=== PATIENT | male | born 1955 | race Caucasian/White ===

== ENCOUNTER → 2020-08-28 | Outpatient (CLI) | payer OTHER ==
[~2020-08-28] MED LIST: CHOLESTEROL MED; MOTION RELIEF25 MG PO
== END ==
LOC: SJCVCIMAG 07:08
PROVIDERS: ATTEND Internal Medicine Cardiovascular Disease
DX: I11.9 Hypertensive heart disease without heart failure (principal); I25.10 Atherosclerotic heart disease of native coronary artery without angina pectoris; E78.5 Hyperlipidemia, unspecified

== ENCOUNTER → 2020-09-14 | Outpatient (CLI) | payer OTHER ==
[2020-09-14 10:16] LABS: ABSOLUTE NEUTROPHILS 3.9 thou/uL (1.4-8.2); BASOPHILS 0.5 % (0.0-2.0); EOSINOPHILS 2.7 % (0.0-3.0); HEMATOCRIT 41.8 % (42.0-52.0); HEMOGLOBIN 13.7 gm/dL (14.0-18.0); LYMPHOCYTES 23.3 % (24.0-44.0); MCH 27.2 pg (26.0-34.0); MCHC 32.8 g/dL (28.0-37.0); MONOCYTES 7.9 % (1.0-8.0); PLATELET COUNT 204 thou/uL (150-400); POLYS 65.6 % (36.0-66.0); RBC 5.04 mil/uL (4.50-6.00); RDW 14.5 % (10.5-14.5); WBC 5.9 thou/uL (4.0-11.0)
[2020-09-14 10:32] LABS: ALBUMIN 3.6 g/dL (3.4-5.0); CALCIUM 8.7 mg/dL (8.5-10.1); CREATININE 0.9 mg/dL (0.7-1.3); POTASSIUM 4.3 mmol/L (3.5-5.1); TOTAL BILIRUBIN 0.6 mg/dL (0.2-1.0); TOTAL PROTEIN 6.6 g/dL (6.4-8.2)
== END ==
LOC: CAT 09:30
PROVIDERS: ATTEND Internal Medicine Cardiovascular Disease
DX: I25.10 Atherosclerotic heart disease of native coronary artery without angina pectoris (principal); R91.1 Solitary pulmonary nodule; I48.91 Unspecified atrial fibrillation

== ENCOUNTER → 2020-09-16 | Outpatient (CLI) | payer OTHER ==
[~2020-09-16] MED LIST changes: +LIPITOR40 MG PO; +TOPROL XL25 MG PO; +TRIAMCINOLONE A15 G3 TOP; +VITAMIN AND MI1 EACH PO; +XARELTO20 MG PO
== END ==
LOC: LAB 10:32
PROVIDERS: ATTEND Internal Medicine Cardiovascular Disease
DX: Z01.812 Encounter for preprocedural laboratory examination (principal); Z20.828 Contact with and (suspected) exposure to other viral communicable diseases

== ENCOUNTER 2020-09-17 06:30 | Observation (INO) | payer OTHER ==
[2020-09-17] VITALS (10 sets, daily range): BP systolic 113–141; BP diastolic 59–88
[~2020-09-17] VITALS: Ht 182.9 cm; Wt 94.3 kg
[~2020-09-17 06:30] MED LIST changes: -LIPITOR40 MG PO; -TOPROL XL25 MG PO; -TRIAMCINOLONE A15 G3 TOP; -VITAMIN AND MI1 EACH PO; -XARELTO20 MG PO
[2020-09-17] MEDS ORDERED: LIPITOR40 MG PO (07:45)
[2020-09-17] MEDS ORDERED: TOPROL XL25 MG PO (07:45)
[2020-09-17] MEDS ORDERED: TRIAMCINOLONE A15 G3 TOP (07:49)
[2020-09-17] MEDS ORDERED: VITAMIN AND MI1 EACH PO (07:50)
[2020-09-17] MEDS ORDERED: XARELTO20 MG PO (07:54)
[2020-09-17 07:55] LABS: ABSOLUTE NEUTROPHILS 3.4 thou/uL (1.4-8.2); BASOPHILS 0.9 % (0.0-2.0); EOSINOPHILS 3.5 % (0.0-3.0); HEMATOCRIT 41.3 % (42.0-52.0); HEMOGLOBIN 13.5 gm/dL (14.0-18.0); LYMPHOCYTES 27.7 % (24.0-44.0); MCH 26.9 pg (26.0-34.0); MCHC 32.7 g/dL (28.0-37.0); MCV 82.4 fL (80.0-100.0); MONOCYTES 9.1 % (1.0-8.0); PLATELET COUNT 209 thou/uL (150-400); POLYS 58.8 % (36.0-66.0); RBC 5.02 mil/uL (4.50-6.00); RDW 14.3 % (10.5-14.5); WBC 5.9 thou/uL (4.0-11.0)
[2020-09-17 08:02] LABS: APTT 24.7 Seconds (24.5-32.8); PROTIME 10.1 Seconds (9.3-11.4)
[2020-09-17 08:11] LABS: CALCIUM 8.4 mg/dL (8.5-10.1); CREATININE 0.8 mg/dL (0.7-1.3); POTASSIUM 3.9 mmol/L (3.5-5.1)
[2020-09-17 08:13] LABS: ALBUMIN 3.5 g/dL (3.4-5.0); TOTAL BILIRUBIN 0.4 mg/dL (0.2-1.0); TOTAL PROTEIN 6.6 g/dL (6.4-8.2)
--- NOTE | 2020-09-17 13:50 | NUR ---
RIGHT GROIN IS STABLE, NO SIGN'S OF A HEMATOMA. PEDAL PULSES ARE INTACT 2+ BILATERALLY, NO MOTTLING, BOTH LEGS WARM TO TOUCH. DENIES ANY CHEST PAIN, NO SOB ON ROOM AIR. AT BEDSIDE, QUESTIONS ASKED AND DISCUSSED POST SURGERY EXPECTATIONS .
--- NOTE | 2020-09-17 19:58 | NUR ---
1730_ OFF BEDREST, RIGHT GROIN IS C,D,I NO HEMATOMA, SOFT TO TOUCH. PT. NSR NO ECTOPY. DENIES CP. DENIES SOB.
[2020-09-18 00:59] VITALS: BP 128/74
[2020-09-18 01:04] VITALS: BP 122/71
[2020-09-18 04:03] VITALS: BP 122/75
--- NOTE | 2020-09-18 07:33 | NUR ---
SLEPT PART OF SHIFT. DAY NURSE PRIOR TO DC OF TRE NOTED BLOOD TINGED URINE. FIRST COUPLE OF VOIDS PAST DC HAD SMALL AMOUT OF BLOOD NOTED. PATIENT STATES IS CLEAR THIS AM. RIGHT GROIN SITE WITHOUT HEMOTOMA OR BLEEDING. WORKING ON GOALS AND PLAN OF CARE FOR NOC. PROGRESSING TOWARDS DISCHARGE GOALS AT THIS TIME. CONTINUE TO ASSES.
[2020-09-18 08:47] VITALS: BP 115/69
[2020-09-18 11:14] VITALS: BP 115/69
--- NOTE | 2020-09-21 11:51 | P ---
[facility] [place] [address] PROCEDURE REPORT Name: JENNIFER RYDER Room #: 219-P [facility] Katie Colmenares#: [id number] Admission: 09/17/20 Attend Phys: Reji Mock MD Discharge: 09/18/20 Date of : 53 Report #: [id number] THIS REPORT FOR: cc: Cheo Francois MD, Troy A. MD Couchonnal, Luis F. MD ~ CC: Reji Francois PREOPERATIVE DIAGNOSIS: Atrial fibrillation. POSTOPERATIVE DIAGNOSIS: Atrial fibrillation. HISTORY: The patient is a 65-year-old with history of atrial fibrillation, here for ablation. PROCEDURES PERFORMED: 1. Atrial fibrillation ablation, CPT code 43393. 2. 3D mapping, CPT code 98559. 3. Intracardiac echo, CPT code 09731. ANESTHESIA: The patient underwent general anesthesia with no anesthesia related complications. DESCRIPTION OF PROCEDURE: The patient underwent informed consent. We discussed the details of the procedure including the risks, which include but not limited to bleeding, infection, vascular damage, stroke, [place] as well as cardiac perforation. He understood these risks and is willing to proceed. The patient was brought to EP laboratory in fasting and sedated state, prepped and draped in a sterile fashion. I obtained access to the right femoral vein x 3, placing 8, 9 and 7-Vietnamese short sheath using modified Seldinger technique and a Decapolar catheter was placed easily in the coronary sinus and ICE catheter was placed in the right atrium and using intracardiac ultrasound, I created 3D geometry of the left atrium, which showed evidence of 2 left and 2 right pulmonary veins. This was merged with the patient's cardiac CT scan. The patient was systemically heparinized and transseptal was performed using an SL1 sheath and a [place] needle. Transseptal was straightforward and I exchanged for the cryo sheath and placed the Lasso catheter in the left atrium and created a detailed 3D geometry and voltage map of the left atrium. Next, we started by isolating the pulmonary veins, left superior pulmonary vein underwent two 4-minute freezes and isolated within 100 seconds of the second freeze. The left inferior pulmonary vein underwent a single 4-minute freeze as this isolated within 40 seconds. The right superior pulmonary vein underwent a 4-minute freeze, which resulted in isolation 165 seconds. An additional freeze was performed at 180 seconds. Next, the right inferior pulmonary vein was slightly harder to isolate. I performed 2 initial 3-minute freezes, which did not result [address] [address] PROCEDURE REPORT Name: RYDERJENNIFER Room #: 219-P [facility] Katie Colmenares#: [id number] Admission: 09/17/20 Attend Phys: Reji Mock MD Discharge: 09/18/20 Date of : 53 Report #: [id number] in isolation. I therefore performed contrast injections and performed a 180 second and a 100-second freeze, both of which were lower, but there was still a slight leak. Therefore, I went back up with the Lasso catheter and created a voltage map of this vein and it showed that the vein was essentially connected at the inferior aspect of the vein. Therefore, I went back up with the cryoballoon and performed a lower freeze of 4 minutes' duration and the vein isolated within 30 seconds. As such, a repeat voltage map was created and all 4 pulmonary veins were isolated within there was wide circumferential ablation of the pulmonary veins. Next, a basic EP study was performed and AV block was noted at 310 milliseconds. Atrial ERP was noted at 280 milliseconds at a [address] cycle length. I performed aggressive atrial burst pacing down to 240 milliseconds and we did not induce any AFib or atrial flutter, nor was there any SVT. As such, the procedure was concluded. The patient received systemic protamine and once ACT was within acceptable range, catheters and sheaths were pulled. Hemostasis was obtained and the patient awoke neurologically and hemodynamically intact. CONCLUSIONS: Successful AFib ablation with isolation of the pulmonary veins. <ELECTRONICALLY SIGNED> By: Reji Mock MD 09/21/20 1151 1224 12 Reji Mock MD /nt
== END 2020-09-18 12:23 | disposition home or self-care (01) ==
LOC: CATH 06:30 → 2N 13:02 → CATH 13:21 → 2N 09-18 12:23
PROVIDERS: ADMIT Internal Medicine Cardiovascular Disease; ATTEND Internal Medicine Cardiovascular Disease
DX: I48.91 Unspecified atrial fibrillation (principal); I25.10 Atherosclerotic heart disease of native coronary artery without angina pectoris; I10 Essential (primary) hypertension; E78.5 Hyperlipidemia, unspecified; G47.33 Obstructive sleep apnea (adult) (pediatric); Z79.899 Other long term (current) drug therapy
CPT/HCPCS: 62110; 62900; 65020; 65040; 65130; 70005

== ENCOUNTER 2021-01-26 17:10 | Emergency (ER) | payer OTHER ==
[~2021-01-26] VITALS: Ht 185.4 cm; Wt 95.3 kg
[~2021-01-26 17:10] MED LIST changes: +LIPITOR40 MG PO; +TOPROL XL25 MG PO; +TRIAMCINOLONE A15 G3 TOP; +VITAMIN AND MI1 EACH PO; +XARELTO20 MG PO
[2021-01-26] MEDS ORDERED: DILTIAZEM 24HR180 M1 PO (17:24)
[2021-01-26 17:55] LABS: HEMATOCRIT 36.7 % (42.0-52.0); HEMOGLOBIN 11.2 gm/dL (14.0-18.0); MCH 20.2 pg (26.0-34.0); MCHC 30.5 g/dL (28.0-37.0); MCV 66.3 fL (80.0-100.0); PLATELET COUNT 317 thou/uL (150-400); RBC 5.54 mil/uL (4.50-6.00); RDW 24.2 % (10.5-14.5); WBC 7.9 thou/uL (4.0-11.0)
[2021-01-26 18:22] LABS: ANION GAP 8 mmol/L (7-16); BUN 13 mg/dL (7-18); CALCIUM 8.7 mg/dL (8.5-10.1); CHLORIDE 106 mmol/L (98-107); CO2 28 mmol/L (21-32); GLUCOSE 112 mg/dL (74-106); POTASSIUM 3.9 mmol/L (3.5-5.1); SODIUM 142 mmol/L (136-145)
[2021-01-26 18:33] LABS: ABSOLUTE NEUTROPHILS 6.6 thou/uL (1.4-8.2); ALBUMIN 3.8 g/dL (3.4-5.0); ANISOCYTOSIS 2+; DIRECT BILIRUBIN 0.1 mg/dL (<0.1-0.2); MAGNESIUM 2.1 mg/dL (1.8-2.4); OVALOCYTES 2+; PHOSPHORUS 3.5 mg/dL (2.5-4.9); SGOT 27 U/L (15-37); SGPT 29 U/L (30-65); TOTAL BILIRUBIN 0.4 mg/dL (0.2-1.0); TROPONIN-I <0.06 ng/mL (<0.06)
[2021-01-26 18:34] LABS: POLYCHROMASIA SLIGHT; SCHISTOCYTES 1+; TARGET CELLS FEW; TEARDROPS FEW
[2021-01-26 19:03] VITALS: BP 133/77
--- NOTE | 2021-01-27 07:06 | EKG ---
[place] [address] [address] [place] [address] ELECTROCARDIOGRAM REPORT Name: JENNIFER RYDER Room #: DEP ALEA Colmenares#: [id number] Admission: 01/26/21 Attend Phys: Discharge: 01/26/21 Date of : 53 Report #: [id number] [facility] ED Test Date: 2021-01-26 Test Time: 18:07:27 Pat Name: JENNIFER RYDER Department: Room: Gender: M [employer]: AYO : 1955 Requested By: Juan Daniel Monteiro Order Number: [id number] MD: Amandeep Vallejo Measurements Intervals [place] Rate: 70 P: 31 SC: 173 QRS: 26 QRSD: 97 T: 38 QT: 381 QTc: 412 Interpretive Statements Sinus rhythm Probable anteroseptal infarct, old Baseline wander in lead(s) II,III,aVF Compared to ECG 08/25/2012 01:54:20 Myocardial infarct finding now present Ventricular-paced complex(es) or rhythm no longer present Ventricular premature complex(es) no longer present Electronically Signed On 01-27-2021 7:06:05 CDT by Amandeep Vallejo [email or web address] <ELECTRONICALLY SIGNED> By: Amandeep Vallejo MD, FACC 01/27/21 0706 06 06 Amandeep Vallejo MD, [facility] /EPI
== END 2021-01-26 19:10 | disposition home or self-care (01) ==
LOC: ER 17:10
PROVIDERS: Emergency Medicine
DX: D64.9 Anemia, unspecified (principal); R55 Syncope and collapse; I10 Essential (primary) hypertension; E78.5 Hyperlipidemia, unspecified; Z79.899 Other long term (current) drug therapy

== ENCOUNTER → 2021-02-04 | Outpatient (CLI) | payer OTHER, BC ==
[~2021-02-04] MED LIST changes: +DILTIAZEM 24HR180 M1 PO
== END ==
LOC: SJCVC 10:23
PROVIDERS: ATTEND Internal Medicine Cardiovascular Disease
DX: J44.9 Chronic obstructive pulmonary disease, unspecified (principal); I25.10 Atherosclerotic heart disease of native coronary artery without angina pectoris; I10 Essential (primary) hypertension; I48.0 Paroxysmal atrial fibrillation

== ENCOUNTER → 2021-03-22 | Outpatient (CLI) | payer OTHER, BC | LOC: CAT 10:45 | PROVIDERS: ATTEND Pediatrics | DX: J84.10 Pulmonary fibrosis, unspecified (principal); R91.1 Solitary pulmonary nodule; I25.10 Atherosclerotic heart disease of native coronary artery without angina pectoris ==

== ENCOUNTER → 2021-03-30 | Outpatient (CLI) | payer OTHER, BC | LOC: SJCVC 13:50 | PROVIDERS: ATTEND Internal Medicine Cardiovascular Disease | DX: I48.0 Paroxysmal atrial fibrillation (principal); I25.10 Atherosclerotic heart disease of native coronary artery without angina pectoris; I10 Essential (primary) hypertension; E78.5 Hyperlipidemia, unspecified; G47.33 Obstructive sleep apnea (adult) (pediatric); E78.2 Mixed hyperlipidemia; Z79.899 Other long term (current) drug therapy; Z82.49 Family history of ischemic heart disease and other diseases of the circulatory system ==

== ENCOUNTER → 2021-08-30 | Outpatient (CLI) | payer OTHER, BC | LOC: SJCVCIMAG 09:54 | PROVIDERS: ATTEND Internal Medicine Cardiovascular Disease | DX: I08.8 Other rheumatic multiple valve diseases (principal); I25.10 Atherosclerotic heart disease of native coronary artery without angina pectoris; I10 Essential (primary) hypertension; E78.00 Pure hypercholesterolemia, unspecified; I48.0 Paroxysmal atrial fibrillation; Z79.82 Long term (current) use of aspirin; Z79.899 Other long term (current) drug therapy; E78.2 Mixed hyperlipidemia; Z98.890 Other specified postprocedural states ==

== ENCOUNTER → 2021-09-29 | Outpatient (CLI) | payer OTHER, BC | LOC: SJCVC 13:15 | PROVIDERS: ATTEND Internal Medicine Cardiovascular Disease | DX: I48.0 Paroxysmal atrial fibrillation (principal); I10 Essential (primary) hypertension; I25.10 Atherosclerotic heart disease of native coronary artery without angina pectoris; E78.2 Mixed hyperlipidemia; Z79.82 Long term (current) use of aspirin; Z79.899 Other long term (current) drug therapy; Z82.49 Family history of ischemic heart disease and other diseases of the circulatory system ==